=== PATIENT | male | born 2000 | race Caucasian/White ===

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

== ENCOUNTER 2019-05-14 00:11 | Emergency (ER) | payer OTHER ==
[2019-05-14 00:21] VITALS: TEMP 98.9
[2019-05-14] MEDS ORDERED: KETOROLAC 60 MG/2 ML VIAL IM STA (00:46)
--- NOTE | 2019-05-14 00:51 | ED ---
General Adult HPI - General Source: patient, RN notes reviewed, old records reviewed Mode of arrival: ambulatory Limitations: no limitations <Tra Wallace - Last Filed: 05/14/19 01:53> <Eda Bryant - Last Filed: 05/15/19 06:03> - General Chief complaint: Back Pain/Injury Stated complaint: Back Pain Time Seen by Provider: 05/14/19 00:28 - History of Present Illness Initial comments: 18-year-old male patient passed history of psychiatric disorder, presents to ED with 1 day of lumbar back pain. Patient reports that he was changing the oil in his car today now he is having midline lumbar back pain. Patient denies any recent falls or trauma. Patient has a loss of bowel or bladder control, saddle anesthesia, paresthesias, upper or lower extremity weakness. Denies all other complaints. Systemic: Pt denies fatigue, fever/chills, rash. Pt denies weakness, night sweats, weight loss. Neuro: Pt denies headache, visual disturbances, syncope or pre-syncope. HEENT: Pt denies ocular discharge or irritation, otalgia, rhinorrhea, pharyngitis or notable lymphadenopathy. Cardiopulmonary: Pt denies chest pain, SOB, heart palpitations, dyspnea on exertion. Abdominal/GI: Pt denies abdominal pain, n/v/d. : Pt denies dysuria, burning w/ urination, frequency/urgency. Denies new onset urinary or bowel incontinence. MSK: Pt denies loss of strength or function in extremities. Neuro: Pt denies new onset weakness, paresthesias. (Tra Wallace) - Related Data Home Medications Medication Instructions Recorded Confirmed traZODone HCL 50 mg PO HS PRN 12/21/18 12/21/18 Previous Rx's Medication Instructions Recorded Omeprazole 40 mg PO DAILY #14 capsule. 12/21/18 Ondansetron Odt [Zofran Odt] 4 mg PO Q8HR PRN #10 tab 12/21/18 Penicillin V Potassium [Pen Vee K] 500 mg PO QID #40 tablet 12/21/18 Ibuprofen [Motrin] 600 mg PO Q6HR PRN #40 day 05/14/19 predniSONE 50 mg PO DAILY #5 tab 05/14/19 Allergies Allergy/AdvReac Type Severity Reaction Status Date / Time bee venom protein (honey bee) Allergy Anaphylaxis Verified 05/14/19 00:22 pollen extracts Allergy Swelling Verified 05/14/19 00:22 Review of Systems ROS Other: All systems not noted in ROS Statement are negative. <Tra Wallace - Last Filed: 05/14/19 01:53> ROS Other: All systems not noted in ROS Statement are negative. <Eda Bryant Caroline - Last Filed: 05/15/19 06:03> ROS Statement: Those systems with pertinent positive or pertinent negative responses have been documented in the HPI. Past Medical History Past Medical History: Asthma History of Any Multi-Drug Resistant Organisms: None Reported Past Surgical History: Adenoidectomy, Ear Surgery Additional Past Surgical History / Comment(s): pe tubes Past Psychological History: ADD/ADHD, Anxiety, Bipolar, Depression Smoking Status: Unknown if ever smoked Past Alcohol Use History: None Reported Past Drug Use History: Marijuana <Tra Wallace - Last Filed: 05/14/19 01:53> General Exam Limitations: no limitations <Tra Wallace - Last Filed: 05/14/19 01:53> - General Exam Comments Initial Comments: Constitutional: NAD, AOX3, Pt has pleasant affect. HEENT: NC/AT, trachea midline, neck supple, no lymphadenopathy. Posterior pharynx non erythematous, without exudates. External ears appear normal, without discharge. Mucous membranes moist. Eyes PERRLA, EOM intact. There is no scleral icterus. No pallor noted. Cardiopulmonary: RRR, no murmurs, rubs or gallops, no JVD noted. Lungs CTAB in anterior and posterior drew. No peripheral edema. Abdominal exam: Abdomen soft and non-distended. Abdomen non-tender to palpation in all 4 quadrants. Bowel sounds active in LLQ. No hepatosplenomegaly. No ecchymosis Neuro: CN II-XII grossly intact. No nuchal rigidity. No raccon eyes, no garza sign, no hemotympanum. No cervical spinal tenderness. MSK: No midline cervical thoracic back pain. Mild amount of midline lumbar back pain. Straight leg raise positive bilaterally. Out of 5 strength psoas and quadriceps muscles. Heel toe walking intact. Patellar Reflex 2 out of 4 bilaterally. No posterior calf tenderness bilaterally, homans sign negative bilaterally. Posterior tibialis and radial pulse +2 bilaterally. Sensation intact in upper and lower extremities. Full active ROM in upper and lower extremities, 5/5 stregnth. (Tra Wallace) Course Vital Signs 05/14/19 05/14/19 00:17 02:21 Temperature 98.9 F Pulse Rate 94 89 Respiratory 16 18 Rate Blood Pressure 122/72 115/65 O2 Sat by Pulse 97 96 Oximetry Medical Decision Making <Tra Wallace - Last Filed: 05/14/19 01:53> <Eda Bryant - Last Filed: 05/15/19 06:03> - Medical Decision Making 18-year-old male patient passed history of psychiatric disorder, presents to ED with 1 day of lumbar back pain. Patient reports that he was changing the oil in his car today now he is having midline lumbar back pain. Patient denies any recent falls or trauma. Patient has a loss of bowel or bladder control, saddle anesthesia, paresthesias, upper or lower extremity weakness. Denies all other complaints. Pt vitals signs stable, afebrile. Physical exam displayed: No midline cervical thoracic back pain. Mild amount of midline lumbar back pain. Straight leg raise positive bilaterally. Out of 5 strength psoas and quadriceps muscles. Heel toe walking intact. Patellar Reflex 2 out of 4 bilaterally. No posterior calf tenderness bilaterally, homans sign negative bilaterally. Posterior tibialis and radial pulse +2 bilaterally. Sensation intact in upper and lower extremities. Full active ROM in upper and lower extremities, 5/5 stregnth. Plain film of lumbar spine displayed no acute process. Patient likely is experiencing lumbar back strain and after changing oil and car. Patient discharged with ibuprofen, steroids. Pt denies suicidal homicidal ideations. Patient will be given orthopedic consult. Case discussed with Dr. Bryant. (Tra Wallace) I was available for consultation in the emergency department. The history and physical exam were done by the midlevel provider. I was consulted for this patient's care. I reviewed the case with the midlevel provider and based on their presentation of the patient, I agree with the assessment, medical decision making and plan of care as documented. Chart was dictated using [employer] dictation software. Attempts were made to correct any dictation errors however some typographical errors may persist. (Eda Bryant) Disposition Is patient prescribed a controlled substance at d/c from ED?: No <Tra Wallace - Last Filed: 05/14/19 01:53> <Eda Bryant - Last Filed: 05/15/19 06:03> Clinical Impression: Lumbar back sprain Disposition: HOME SELF-CARE Condition: Stable Instructions (If sedation given, give patient instructions): Acute Low Back Pain (ED) Additional Instructions: Patient to adhere to previously discussed treatment plan and will take medicat ion(s) as directed. Patient to follow up with PCP in 1-2 days. Patient to return to ED if symptoms do not improve. Follow-up with primary care provider tomorrow. Take medication as directed. Return to ER if condition worsens. Prescriptions: Ibuprofen [Motrin] 600 mg PO Q6HR PRN #40 day PRN Reason: Pain predniSONE 50 mg PO DAILY #5 tab Referrals: None,Stated [Primary Care Provider] - 1-2 days Nelson Mattson MD [STAFF PHYSICIAN] - 1-2 days
--- NOTE | 2019-05-14 01:35 | XR ---
EXAM: XR L Spine CLINICAL HISTORY: ITS.REASON XR Reason: Pain TECHNIQUE: X-ray lumbar spine AP and lateral 3 views. COMPARISON: None available FINDINGS: Lumbar vertebral height and alignment are within normal limits except for straightening of normal lumbar lordosis. No evidence of lumbar vertebral fracture or subluxation. Disc spaces are well-maintained. S1 spina bifida occulta. IMPRESSION: No acute bone or joint abnormalities.
[2019-05-14 02:42] VITALS: BP 115/65; PULSE 89; RESP 18
== END 2019-05-14 02:23 | disposition home or self-care (01) ==
LOC: EC 00:11
DX: S33.5XXA Sprain of ligaments of lumbar spine, initial encounter (principal); F41.9 Anxiety disorder, unspecified; F31.9 Bipolar disorder, unspecified; Z91.030 Bee allergy status; Z91.09 Other allergy status, other than to drugs and biological substances
CPT/HCPCS: 72100; 99284; 96372; J1885

== ENCOUNTER 2019-07-23 08:26 | Emergency (ER) | payer OTHER ==
[2019-07-23 08:34] VITALS: BP 124/73; PULSE 75; RESP 16; TEMP 97.4
[2019-07-23] MEDS ORDERED: IBUPROFEN 600 MG TAB PO STA (08:39)
--- NOTE | 2019-07-23 08:41 | ED ---
Back Pain HPI - General Chief Complaint: Back Pain/Injury Stated Complaint: back pain Time Seen by Provider: 07/23/19 08:36 Source: patient, RN notes reviewed Mode of arrival: ambulatory Limitations: no limitations - History of Present Illness Initial Comments: Is a 19-year-old male presents emergency Department chief complaint rib pain. Patient had upper back, for rib pain. Patient states bilateral. Patient states it has been going on for last couple days. Patient does admit to cough and congestion is a daily smoker. Patient reports no fevers chills no trauma denies any abdominal pain the low back pain. Patient has no chest pain no prior cardiac disease no lung disease. - Related Data Home Medications Medication Instructions Recorded Confirmed traZODone HCL 50 mg PO HS PRN 12/21/18 12/21/18 Previous Rx's Medication Instructions Recorded Omeprazole 40 mg PO DAILY #14 capsule. 12/21/18 Ondansetron Odt [Zofran Odt] 4 mg PO Q8HR PRN #10 tab 12/21/18 Penicillin V Potassium [Pen Vee K] 500 mg PO QID #40 tablet 12/21/18 Ibuprofen [Motrin] 600 mg PO Q6HR PRN #40 day 05/14/19 predniSONE 50 mg PO DAILY #5 tab 05/14/19 Ibuprofen [Motrin] 600 mg PO Q8HR PRN #30 tab 07/23/19 Allergies Allergy/AdvReac Type Severity Reaction Status Date / Time bee venom protein (honey bee) Allergy Anaphylaxis Verified 07/23/19 08:34 pollen extracts Allergy Swelling Verified 07/23/19 08:34 Review of Systems ROS Statement: Those systems with pertinent positive or pertinent negative responses have been documented in the HPI. ROS Other: All systems not noted in ROS Statement are negative. Past Medical History Past Medical History: Asthma History of Any Multi-Drug Resistant Organisms: None Reported Past Surgical History: Adenoidectomy, Ear Surgery Additional Past Surgical History / Comment(s): pe tubes Past Psychological History: ADD/ADHD, Anxiety, Bipolar, Depression Smoking Status: Current every day smoker Past Alcohol Use History: None Reported Past Drug Use History: Marijuana General Exam Limitations: no limitations General appearance: alert, in no apparent distress Head exam: Present: atraumatic, normocephalic, normal inspection Eye exam: Present: normal appearance, PERRL, EOMI. Absent: scleral icterus, conjunctival injection, periorbital swelling ENT exam: Present: normal exam, normal oropharynx, mucous membranes moist Neck exam: Present: normal inspection, full ROM. Absent: tenderness, meningismus, lymphadenopathy Respiratory exam: Present: normal lung sounds bilaterally, chest wall tenderness (Bilateral front and back). Absent: respiratory distress, wheezes, rales, rhonchi, stridor Cardiovascular Exam: Present: regular rate, normal rhythm, normal heart sounds. Absent: systolic murmur, diastolic murmur, rubs, gallop, clicks Neurological exam: Present: alert, oriented X3, CN II-XII intact, reflexes normal. Absent: motor sensory deficit Skin exam: Present: warm, dry, intact, normal color. Absent: rash Course Vital Signs 07/23/19 08:33 Temperature 97.4 F L Pulse Rate 75 Respiratory 16 Rate Blood Pressure 124/73 O2 Sat by Pulse 100 Oximetry Medical Decision Making - Medical Decision Making 19-year-old male presented from for upper back, rib pain. This is reproducible pain over his ribs there is no thoracic tenderness and no sternal tenderness. Patient no trauma. Chest x-ray is unremarkable. This is related to chest wall inflammation or costochondritis. Patient was started on anti-inflammatories. I counseled the patient for smoking cessation for greater than 3 minutes. Patient advised to follow-up with PCP Disposition Clinical Impression: Costochondritis, Back pain Disposition: HOME SELF-CARE Condition: Stable Instructions (If sedation given, give patient instructions): Chest Wall Pain (ED) Additional Instructions: Please return to the Emergency Department if symptoms worsen or any other concerns. Prescriptions: Ibuprofen [Motrin] 600 mg PO Q8HR PRN #30 tab PRN Reason: Pain Is patient prescribed a controlled substance at d/c from ED?: No Referrals: Lian Bowman MD [Primary Care Provider] - 1-2 days Time of Disposition: 08:57
--- NOTE | 2019-07-23 08:52 | XR ---
EXAMINATION TYPE: XR chest 2V DATE OF EXAM: 07/23/2019 COMPARISON: Chest x-ray November 09, 2016 HISTORY: Posterior chest pain. TECHNIQUE: Frontal and lateral views of the chest are obtained. FINDINGS: There is no focal air space opacity, pleural effusion, or pneumothorax seen. The cardiac silhouette size is within normal limits. The osseous structures are intact. IMPRESSION: No acute cardiopulmonary process. No significant change from prior.
== END 2019-07-23 09:10 | disposition home or self-care (01) ==
LOC: EC 08:26
DX: M94.0 Chondrocostal junction syndrome [Tietze] (principal); M54.6 Pain in thoracic spine; R05 Cough; R09.89 Other specified symptoms and signs involving the circulatory and respiratory systems; F17.200 Nicotine dependence, unspecified, uncomplicated; Z87.09 Personal history of other diseases of the respiratory system; Z91.048 Other nonmedicinal substance allergy status; Z71.6 Tobacco abuse counseling
CPT/HCPCS: 71046; 99283; 99406

== ENCOUNTER → 2020-10-31 | Outpatient (CLI) | payer OTHER ==
--- NOTE | 2020-10-31 15:45 | XR ---
EXAMINATION TYPE: XR lumbar spine 2 or 3V DATE OF EXAM: 10/31/2020 CLINICAL HISTORY: pain TECHNIQUE: Three views of the lumbar spine are submitted. COMPARISON: None. FINDINGS: There are 5 lumbar type vertebral bodies identified. The lumbar spine shows satisfactory alignment w ithout evidence of acute fracture or dislocation. Vertebral body heights are within normal limits. Disc spaces are within normal limits. The overlying soft tissue appears unremarkable. IMPRESSION: No acute fracture or dislocation is seen in the lumbar spine. ICD 10 NO FRACTURE, INITIAL EVALUATION
--- NOTE | 2020-10-31 15:45 | XR ---
EXAMINATION TYPE: XR thoracic spine 2V DATE OF EXAM: 10/31/2020 CLINICAL HISTORY: pain TECHNIQUE: Frontal, lateral, and swimmer's view of thoracic spine are obtained. COMPARISON: None. FINDINGS: Thoracic spine show satisfactory alignment without evidence of acute fracture or dislocatio n. Vertebral body heights are preserved. Disc spaces are well preserved. Visualized ribs are unrem arkable. IMPRESSION: No acute fracture or dislocation is seen in the thoracic spine. ICD 10 NO FRACTURE, INIT IAL EVALUATION
--- NOTE | 2020-10-31 15:45 | XR ---
EXAMINATION TYPE: XR knee limited LT DATE OF EXAM: 10/31/2020 CLINICAL HISTORY: pain TECHNIQUE: Three views of the left knee are obtained. COMPARISON: None. FINDINGS: There is no acute fracture/dislocation. The tri-compartment joint spaces appear within no rmal limits. The overlying soft tissue appears unremarkable. IMPRESSION: There is no acute fracture or dislocation ICD 10 NO FRACTURE, INITIAL EVALUATION
--- NOTE | 2020-10-31 15:46 | XR ---
EXAMINATION TYPE: XR sacrum coccyx DATE OF EXAM: 10/31/2020 CLINICAL HISTORY: pain TECHNIQUE: Three views of the sacrum and coccyx are submitted. COMPARISON: None Sacral alae appear symmetric. No evidence for fracture or bony lesion. Sacroiliac joints are within normal limits. Posterior fusion defect at S1. Visualized coccygeal segments are free of fracture or lesion. IMPRESSION: Normal study
== END | disposition home or self-care (01) ==
LOC: RADXRMAIN 15:12
PROVIDERS: ATTEND Psychiatry & Neurology Psychiatry
DX: M54.5 Low back pain (principal); M25.562 Pain in left knee
CPT/HCPCS: 72070; 72100; 72220

== ENCOUNTER 2021-09-08 17:24 | Emergency (ER) | payer BC, OTHER ==
[2021-09-08 17:44] VITALS: BP 132/82; PULSE 75; RESP 20; TEMP 98.5
[2021-09-08] MEDS ORDERED: HYDROcodone/APAP 5-325MG 1 EACH TAB PO STA (18:00)
[2021-09-08] MEDS ORDERED: BACITRACIN OINT 1 EACH PACKET TOPICAL ONE (18:00)
[2021-09-08] MEDS ORDERED: DIPH,PERTUS(ACELL)TETVAC-LF 0.5 ML VIAL IM ONE (18:00)
[2021-09-08] MEDS ORDERED: IBUPROFEN 800 MG TAB PO STA (18:00)
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
== END 2021-09-08 19:09 | disposition home or self-care (01) ==
LOC: EC 17:24
DX: T25.022A Burn of unspecified degree of left foot, initial encounter (principal); J45.909 Unspecified asthma, uncomplicated; F17.200 Nicotine dependence, unspecified, uncomplicated; Z91.018 Allergy to other foods; Z91.09 Other allergy status, other than to drugs and biological substances; Z23 Encounter for immunization; X12.XXXA Contact with other hot fluids, initial encounter; Y92.009 Unspecified place in unspecified non-institutional (private) residence as the place of occurrence of the external cause
CPT/HCPCS: 90471; 90715; 99283

== ENCOUNTER 2022-11-10 18:22 | Emergency (ER) | payer OTHER ==
[2022-11-10 18:42] VITALS: RESP 16
[2022-11-10] MEDS ORDERED: KETOROLAC 15 MG/ML 1 ML VIAL IM STA (19:14)
[2022-11-10] MEDS ORDERED: ORPHENADRINE 30 MG/ML 2 ML VIAL IM STA (19:14)
--- NOTE | 2022-11-10 19:31 | XR ---
EXAMINATION TYPE: XR lumbar spine 2 or 3V DATE OF EXAM: 11/10/2022 7:26 PM INDICATION: Patient age:Male; 22 years old; Reason for study: back injury; COMPARISON: None TECHNIQUE: Frontal, lateral and coned in L5-S1 lateral views of the spine. FINDINGS: No evidence of any acute osseous pathology. No evidence of loss of vertebral body height i s seen. There is normal alignment of the lumbar vertebral bodies. No significant degeneration changes throughout the spine. IMPRESSION: No acute fracture.
[2022-11-10] MEDS ORDERED: AMOXIC-POT CLAV 875-125MG 1 EACH TAB PO STA (19:55)
--- NOTE | 2022-11-10 19:55 | ED ---
ENT HPI - General Chief complaint: Dental/Oral Stated complaint: dental & back pain Time Seen by Provider: 11/10/22 19:03 Source: patient Mode of arrival: ambulatory Limitations: no limitations - History of Present Illness Initial comments: Patient is a 22-year-old male presenting with chief complaint of dental pain and back pain. Patient has had ongoing dental pain for a few days. He has a known damaged tooth on the right lower side with the pain is. Patient has a dentist, however he has just not called to set up an appointment yet. Patient also states that a few days ago he was lifting a heavy object when he felt sudden onset of pain in the left sided lower back. He is having no loss of bowel or bladder control. He has been using hot and cold packs for pain relief. Pain is worse with range of motion. No difficulty swallowing, difficulty breathing, chest pain, fever, chills, nausea, vomiting, neck pain, abdominal pain, headache, vision or hearing changes, dysuria, hematuria. - Related Data Home Medications Medication Instructions Recorded Confirmed ARIPiprazole [Abilify] 10 mg PO HS 07/23/19 07/23/19 OXcarbazepine [Trileptal] 150 mg PO BID 07/23/19 07/23/19 traZODone HCL [Desyrel] 100 mg PO HS 07/23/19 07/23/19 Previous Rx's Medication Instructions Recorded Ibuprofen [Motrin] 600 mg PO Q8HR PRN #30 tab 07/23/19 Ibuprofen [Motrin] 800 mg PO Q8H #20 tab 09/08/21 Amoxic-Pot Clav 875-125Mg 1 tab PO BID 7 Days #14 tab 11/10/22 [Augmentin 875-125] Cyclobenzaprine [Flexeril] 10 mg PO HS PRN #10 tab 11/10/22 Allergies Allergy/AdvReac Type Severity Reaction Status Date / Time bee venom protein (honey bee) Allergy Anaphylaxis Verified 11/10/22 18:42 pollen extracts Allergy Swelling Verified 11/10/22 18:42 Review of Systems ROS Statement: Those systems with pertinent positive or pertinent negative responses have been documented in the HPI. ROS Other: All systems not noted in ROS Statement are negative. Past Medical History Past Medical History: Asthma History of Any Multi-Drug Resistant Organisms: None Reported Past Surgical History: Adenoidectomy, Ear Surgery Additional Past Surgical History / Comment(s): pe tubes Past Psychological History: ADD/ADHD, Anxiety, Bipolar, Depression Smoking Status: Current every day smoker Past Alcohol Use History: Occasional Past Drug Use History: Marijuana General Exam Limitations: no limitations General appearance: alert, in no apparent distress Head exam: Present: atraumatic, normocephalic, normal inspection Eye exam: Present: normal appearance Expanded Mouth exam: Present: tongue normal. Absent: drooling, trismus, muffled voice Teeth exam: Present: dental caries, fractured tooth #, gingival enlargement Throat exam: normal inspection Neck exam: Present: normal inspection, full ROM. Absent: tenderness Respiratory exam: Present: normal lung sounds bilaterally. Absent: respiratory distress, wheezes, rales, rhonchi, stridor Cardiovascular Exam: Present: regular rate, normal rhythm, normal heart sounds. Absent: systolic murmur, diastolic murmur, rubs, gallop, clicks Back exam: Present: normal inspection Neurological exam: Present: alert, oriented X3, CN II-XII intact Psychiatric exam: Present: normal affect, normal mood Skin exam: Present: warm, dry, intact, normal color. Absent: rash Course Vital Signs 11/10/22 11/10/22 18:40 20:05 Temperature 98 F 98.7 F Pulse Rate 77 90 Respiratory 16 16 Rate Blood Pressure 157/91 131/67 O2 Sat by Pulse 99 96 Oximetry Medical Decision Making - Medical Decision Making Was pt. sent in by a medical professional or institution? @No Did you speak to anyone other than the patient for history? @No Did you review nursing and triage notes? @Reviewed and agree Were old charts reviewed? @No Differential Diagnosis? @Differential includes dental abscess, toothache, Bryson angina. MDM Differential Back Pain: Strain, cauda equina syndrome, fracture, subluxation, disc herniation, DJD, spinal stenosis, EKG interpreted by me (3pts min.)? @ [none] X-rays interpreted by me (1pt min.)? @Yes, no acute process CT interpreted by me (1pt min.)? @ [none] U/S interpreted by me (1pt. min.)? @ [none] What testing was considered but not performed? (CT, X-rays, U/S, labs)? Why? @None What meds were considered but not given? Why? @ [none] Did you discuss the management of the patient with other professionals? @No Did you reconcile home meds? @ [none] Was smoking cessation discussed for >3mins.? @ [none] Was critical care preformed (if so, how long)? @ [none] Were there social determinants of health that impacted care today? How? (Homelessness, low income, unemployed, alcoholism, drug addiction, transportation, low edu. Level, literacy, decrease access to med. care, detention, rehab)? @No Was there de-escalation of care discussed even if they declined? (Discuss DNR or withdrawal of care, Hospice)? @no What co-morbidities impacted this encounter? (DM, HTN, Smoking, COPD, CAD, Cancer, CVA, Hep., AIDS, mental health diagnosis, sleep apnea, morbid obesity)? @None Was patient admitted / discharged? @Patient presented for evaluation of right lower sided dental pain and left- sided lower back pain. On physical examination there is no brawny induration, normal posterior pharynx, fractured molar is noted with some gingival enlargement and tenderness on palpation.. No trismus. Normal appearance of the back, no loss of bowel or bladder control or saddle paresthesia. X-ray shows no fracture. Patient is given pain medication for tooth and back pain and started on Augmentin for dental abscess. Patient states he has a dentist he can follow-up with.Follow-up with PCP. Report back to ER with any new or worsening symptoms. Discussed return parameters and answered all questions. Patient conveyed verbal understanding and agreed to the plan. I discussed this case in detail with my attending Dr. Reyes Undiagnosed new problem with uncertain prognosis? @ [none] Drug Therapy requiring intensive monitoring for toxicity (Heparin, Nitro, Insulin, Cardizem)? @ [none] Were any procedures done? @None Diagnosis/symptom? @Dental abscess Acute, or Chronic, or Acute on Chronic? @Acute Uncomplicated (without systemic symptoms) or Complicated (systemic symptoms)? @Uncomplicated Side effects of treatment? @ [none] Exacerbation, Progression, or Severe Exacerbation] @ [no] Poses a threat to life or bodily function? @Unlikely Diagnosis/symptom? @Mechanical back pain Acute, or Chronic, or Acute on Chronic? @Acute Uncomplicated (without systemic symptoms) or Complicated (systemic symptoms)? @Uncomplicated Side effects of treatment? @ [none] Exacerbation, Progression, or Severe Exacerbation] @ [no] Poses a threat to life or bodily function? @ [no] Disposition Clinical Impression: Dental abscess, Mechanical back pain Disposition: HOME SELF-CARE Condition: Good Instructions (If sedation given, give patient instructions): Dental Abscess (ED), Acute Low Back Pain (ED), Back Pain (ED), Lower Back Exercises (ED) Additional Instructions: Follow-up with PCP and dentist. Report back to ER with any new or worsening symptoms. Take medication as prescribed. Do not take cyclobenzaprine before driving or operating heavy machinery as it may cause drowsiness. Use heat and ice as needed for pain. Take Motrin and Tylenol as needed for pain. Prescriptions: Amoxic-Pot Clav 875-125Mg [Augmentin 875-125] 1 tab PO BID 7 Days #14 tab Cyclobenzaprine [Flexeril] 10 mg PO HS PRN #10 tab PRN Reason: Spasms Is patient prescribed a controlled substance at d/c from ED?: No Referrals: None,Stated [Primary Care Provider] - 1-2 days Time of Disposition: 19:55
[2022-11-10 20:07] VITALS: BP 131/67; PULSE 90; TEMP 98.7
== END 2022-11-10 20:06 | disposition home or self-care (01) ==
LOC: EC 18:22
DX: K04.7 Periapical abscess without sinus (principal); M54.9 Dorsalgia, unspecified; J45.909 Unspecified asthma, uncomplicated; F41.9 Anxiety disorder, unspecified; F31.9 Bipolar disorder, unspecified; F17.200 Nicotine dependence, unspecified, uncomplicated; F12.90 Cannabis use, unspecified, uncomplicated; Z91.030 Bee allergy status
CPT/HCPCS: 72100; 99283; 96372 ×2; J2360; J1885

== ENCOUNTER 2024-05-23 12:05 | Emergency (ER) | payer OTHER ==
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
[2024-05-23] MEDS: KETOROLAC 15 MG/ML 1 ML VIAL IM STA (12:38)
--- NOTE | 2024-05-23 13:09 | XR ---
EXAMINATION TYPE: XR foot complete LT DATE OF EXAM: 05/23/2024 1:04 PM CLINICAL INDICATION:Male, 23 years old with history of injury; [facility] COMPARISON: None TECHNIQUE: XR foot complete LT examined in the AP, oblique, and lateral projections. FINDINGS: No evidence of any acute osseous pathology. No evidence of soft tissue swelling. IMPRESSION: No evidence of acute fracture.
[2024-05-23 14:06] VITALS: BP 136/78; PULSE 79; RESP 18; TEMP 97.9
== END 2024-05-23 13:50 | disposition home or self-care (01) ==
LOC: EC 12:05
DX: S93.602A Unspecified sprain of left foot, initial encounter (principal); F12.90 Cannabis use, unspecified, uncomplicated; F17.200 Nicotine dependence, unspecified, uncomplicated; Z91.030 Bee allergy status; Z91.018 Allergy to other foods; X50.0XXA Overexertion from strenuous movement or load, initial encounter
CPT/HCPCS: 73630; 99283; 96372; J1885